=== PATIENT | female | born 1930 | race Caucasian/White ===

== ENCOUNTER 2017-09-26 00:07 | Inpatient (IN) | payer OTHER, MEDICARE ==
[~2017-09-26] VITALS: Ht 172.7 cm; Wt 134.0 kg
[2017-09-26] VITALS (7 sets, daily range): BP systolic 93–135; BP diastolic 60–113
[2017-09-26 01:59] LABS: BASOPHIL % 0.2 % (0-2); PLATELET COUNT 160 x10^3mcL (130-400)
[2017-09-26 02:06] LABS: CALCIUM 9.1 mg/dL (8.5-10.1); CARBON DIOXIDE 32.7 mmol/L (21-32); CHLORIDE SERUM 101 mmol/L (98-107); CREATININE SERUM 1.5 mg/dL (0.6-1.0); GLUCOSE SERUM 149 mg/dL (74-106); POTASSIUM SERUM 4.8 mmol/L (3.5-5.1); RED CELL DISTRIBUTION WIDTH 14.9 % (11.5-14.5); SODIUM SERUM 138 mmol/L (136-145)
[2017-09-26 02:11] LABS: ALBUMIN 3.4 g/dL (3.4-5.0); ALKALINE PHOSPHATASE 125 U/L (46-116); ALT/SGPT 30 U/L (14-59); AST/SGOT 30 U/L (15-37); BILIRUBIN TOTAL 0.67 mg/dL (0.20-1.00); TOTAL PROTEIN, SERUM 7.2 g/dL (6.4-8.2)
[2017-09-26] MEDS ORDERED: PANTOPRAZOLE SO40 M1 (03:16)
[2017-09-26] MEDS ORDERED: PRESERVISION (03:17)
[2017-09-26] MEDS ORDERED: FUROSEMIDE40 MG (03:17)
[2017-09-26] MEDS ORDERED: METOPROLOL SUCC25 M2 (03:17)
[2017-09-26] MEDS ORDERED: POTASSIUM CHLO20 ME1 (03:18)
[2017-09-26] MEDS ORDERED: ALDACTONE25 MG (03:18)
[2017-09-26] MEDS ORDERED: WEL100 PO (03:18)
[2017-09-26] MEDS ORDERED: LIPI20 (03:19)
[2017-09-26] MEDS ORDERED: ASPIR 8181 MG PO (03:19)
[2017-09-26] MEDS ORDERED: XARELTO10 M1 (03:19)
[2017-09-26] MEDS ORDERED: MULTAQ400 MG (03:19)
[2017-09-26 04:46] LABS: MAGNESIUM 2.1 mg/dL (1.8-2.4); PHOSPHOROUS 4.3 mg/dL (2.5-4.9)
[2017-09-26 04:51] LABS: FREE T4 1.32 ng/dL (0.76-1.46); T4(THYROXINE) 7.6 ug/dL (4.7-13.3)
[2017-09-26] MEDS ORDERED: XARELTO10 M1 PO (05:12)
[2017-09-26] MEDS ORDERED: METOPROLOL TART25 M1 PO (05:15)
[2017-09-26 05:55] LABS: T3 TOTAL 0.93 ng/mL
[2017-09-26 14:08] LABS: BASOPHIL % 0.4 % (0-2)
[2017-09-26 14:09] LABS: PLATELET COUNT 108 x10^3mcL (130-400)
[2017-09-26 14:18] LABS: CARBON DIOXIDE 31.5 mmol/L (21-32); CHLORIDE SERUM 103 mmol/L (98-107); CREATININE SERUM 1.6 mg/dL (0.6-1.0); GLUCOSE SERUM 150 mg/dL (74-106); MAGNESIUM 1.8 mg/dL (1.8-2.4); PHOSPHOROUS 4.6 mg/dL (2.5-4.9); POTASSIUM SERUM 5.2 mmol/L (3.5-5.1); SODIUM SERUM 140 mmol/L (136-145)
[2017-09-26 21:22] LABS: UA SPECIFIC GRAVITY 1.025 (1.005-1.035); microscopic required? YES; urine erythrocyte NEGATIVE (NEGATIVE)
[2017-09-27 05:54] VITALS: BP 121/67
[2017-09-27 06:30] LABS: BASOPHIL % 0.1 % (0-2)
[2017-09-27 06:45] LABS: CARBON DIOXIDE 29.4 mmol/L (21-32); CHLORIDE SERUM 101 mmol/L (98-107); CREATININE SERUM 1.7 mg/dL (0.6-1.0); GLUCOSE SERUM 213 mg/dL (74-106); MAGNESIUM 1.9 mg/dL (1.8-2.4); PHOSPHOROUS 4.3 mg/dL (2.5-4.9); POTASSIUM SERUM 5.4 mmol/L (3.5-5.1); SODIUM SERUM 138 mmol/L (136-145)
[2017-09-27 06:52] LABS: PLATELET COUNT 124 x10^3mcL (130-400); RED CELL DISTRIBUTION WIDTH 15.2 % (11.5-14.5)
[2017-09-27 11:32] VITALS: BP 111/52
[2017-09-27 14:15] VITALS: BP 103/61
[2017-09-27 18:46] LABS: CALCIUM 8.4 mg/dL (8.5-10.1); CARBON DIOXIDE 29.8 mmol/L (21-32); CHLORIDE SERUM 103 mmol/L (98-107); CREATININE SERUM 1.5 mg/dL (0.6-1.0); GLUCOSE SERUM 180 mg/dL (74-106); POTASSIUM SERUM 4.6 mmol/L (3.5-5.1); SODIUM SERUM 140 mmol/L (136-145)
[2017-09-27 19:25] VITALS: BP 115/59
[2017-09-28] VITALS (10 sets, daily range): BP systolic 94–157; BP diastolic 61–80
[2017-09-28 06:59] LABS: CALCIUM 8.4 mg/dL (8.5-10.1); CARBON DIOXIDE 32.4 mmol/L (21-32); CHLORIDE SERUM 102 mmol/L (98-107); CREATININE SERUM 1.4 mg/dL (0.6-1.0); GLUCOSE SERUM 141 mg/dL (74-106); PHOSPHOROUS 3.7 mg/dL (2.5-4.9); SODIUM SERUM 139 mmol/L (136-145)
[2017-09-28 07:03] LABS: BASOPHIL % 0 % (0-2); PLATELET COUNT 118 x10^3mcL (130-400); RED CELL DISTRIBUTION WIDTH 14.8 % (11.5-14.5)
[2017-09-28 16:07] LABS: CALCIUM 8.7 mg/dL (8.5-10.1); CARBON DIOXIDE 28.9 mmol/L (21-32); CHLORIDE SERUM 101 mmol/L (98-107); CREATININE SERUM 1.4 mg/dL (0.6-1.0); GLUCOSE SERUM 204 mg/dL (74-106); POTASSIUM SERUM 4.3 mmol/L (3.5-5.1); SODIUM SERUM 139 mmol/L (136-145)
[2017-09-29] VITALS (10 sets, daily range): BP systolic 99–130; BP diastolic 45–82
[2017-09-29 06:05] LABS: BASOPHIL % 0.1 % (0-2)
[2017-09-29 06:12] LABS: CALCIUM 8.8 mg/dL (8.5-10.1); CARBON DIOXIDE 31.1 mmol/L (21-32); CHLORIDE SERUM 103 mmol/L (98-107); CREATININE SERUM 1.2 mg/dL (0.6-1.0); GLUCOSE SERUM 101 mg/dL (74-106); MAGNESIUM 1.8 mg/dL (1.8-2.4); POTASSIUM SERUM 4.1 mmol/L (3.5-5.1); SODIUM SERUM 139 mmol/L (136-145)
[2017-09-29 06:14] LABS: PLATELET COUNT 129 x10^3mcL (130-400); RED CELL DISTRIBUTION WIDTH 15.2 % (11.5-14.5)
[2017-09-30 05:26] VITALS: BP 127/56
[2017-09-30 07:13] LABS: BASOPHIL % 0.1 % (0-2); PLATELET COUNT 124 x10^3mcL (130-400); RED CELL DISTRIBUTION WIDTH 15.3 % (11.5-14.5)
[2017-09-30 08:12] LABS: CALCIUM 8.5 mg/dL (8.5-10.1); CARBON DIOXIDE 33.2 mmol/L (21-32); CHLORIDE SERUM 102 mmol/L (98-107); CREATININE SERUM 1.1 mg/dL (0.6-1.0); GLUCOSE SERUM 65 mg/dL (74-106); MAGNESIUM 1.9 mg/dL (1.8-2.4); PHOSPHOROUS 3.6 mg/dL (2.5-4.9); POTASSIUM SERUM 3.4 mmol/L (3.5-5.1); SODIUM SERUM 141 mmol/L (136-145)
[2017-09-30 09:00] VITALS: BP 126/52
[2017-09-30 14:21] VITALS: BP 100/56
[2017-09-30 15:37] VITALS: Ht 172.7 cm; Wt 134.0 kg
[2017-09-30 19:00] VITALS: BP 126/56
[2017-09-30 19:01] VITALS: BP 126/56
[2017-09-30] MEDS ORDERED: CARCD120 PO (19:01)
[2017-09-30] MEDS ORDERED: LOP50 PO (19:02)
[2017-09-30] MEDS ORDERED: LEVEMIR100 U/M1 SC (19:03)
[2017-09-30 21:08] VITALS: BP 118/61
== END 2017-09-30 21:11 | DRG 871 ==
LOC: ED 00:07 → DU 03:08 → IC 09-29 04:32 → DU 09-29 23:58
PROVIDERS: Emergency Medicine; Family Medicine; Student in an Organized Health Care Education/Training Program
PROC: 5A2204Z Restoration of Cardiac Rhythm, Single (ICD-10-PCS; principal; 2017-09-28)
DX: A41.9 Sepsis, unspecified organism (principal); N17.0 Acute kidney failure with tubular necrosis; J44.1 Chronic obstructive pulmonary disease with (acute) exacerbation; N39.0 Urinary tract infection, site not specified; I42.0 Dilated cardiomyopathy; R65.20 Severe sepsis without septic shock; K52.9 Noninfective gastroenteritis and colitis, unspecified; I48.0 Paroxysmal atrial fibrillation; I10 Essential (primary) hypertension; E11.65 Type 2 diabetes mellitus with hyperglycemia; E11.51 Type 2 diabetes mellitus with diabetic peripheral angiopathy without gangrene; E87.5 Hyperkalemia; F32.9 Major depressive disorder, single episode, unspecified; E03.9 Hypothyroidism, unspecified; E66.9 Obesity, unspecified; Z68.39 Body mass index [BMI] 39.0-39.9, adult; Z95.0 Presence of cardiac pacemaker; Z79.01 Long term (current) use of anticoagulants; Z79.82 Long term (current) use of aspirin
CPT/HCPCS: 82962; 83880; 84439; 87046; 87046-59; 97530-GP; J1815; J1956; J2405; J2920; J2930; J3490; J7030; J7620; J7633; Q0092